=== PATIENT | female | born 1995 | race Caucasian/White ===

== ENCOUNTER 2017-09-23 21:40 | Observation (INO) ==
[2017-09-23 22:24] VITALS: BMI 38.0
--- NOTE | 2017-09-24 01:27 | OB/GYN History & Physical ---
- History of Present Illness Date of Admission: 09/23/17 21:40 : 3 PFSH Patient Stated Medical History Migraine Yes Asthma Yes Chlamydia Yes Human Papilloma Virus Yes Depression Yes Abnormal Pap Yes: ASCUS Now Yes - Social History Smoking status: Former smoker Medications Home Medications Medication Instructions Recorded Confirmed Type Acetaminophen 2 tab PO QID PRN #0 09/02/16 History Ibuprofen 2 tab PO Q4H PRN #0 09/02/16 History NO ROUTINE MEDS #0 09/02/16 History Allergies Allergy/AdvReac Type Severity Reaction Status Date / Time codeine Allergy Severe ANAPHYLACTIC Verified 09/02/16 12:15 SHOCK morphine Allergy Intermediate SWELLING Verified 09/02/16 12:15 nickel Allergy Intermediate hives Verified 09/02/16 12:15 Penicillins Allergy Intermediate HIVES Verified 09/02/16 12:15 aspirin Allergy Mild hives Verified 09/02/16 12:15 hydrocodone Allergy Mild HIVES Verified 09/02/16 12:15 fish oil Allergy Mild HIVES Uncoded 09/02/16 12:15 SURGICAL TAPE Allergy Mild HIVES Uncoded 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 Results - Labs CBC & Chem 7: 09/23/17 22:15 09/23/17 22:15 Labs: UA Ur Collection Type Urine, void-cc/notcc 09/23/17 22:21 Urine Color Yellow (YELLOW) 09/23/17 22:21 Urine pH 6.0 (5.0-8.0) 09/23/17 22:21 Ur Specific [place] 1.010 (1.015-1.025) L 09/23/17 22:21 Urine Protein Negative (NEGATIVE) 09/23/17 22:21 Urine Glucose (UA) Negative (NEGATIVE) 09/23/17 22:21 Urine Ketones Negative (NEGATIVE) 09/23/17 22:21 Urine Occult Blood Negative (NEGATIVE) 09/23/17 22:21 Urine Nitrate Negative (NEGATIVE) 09/23/17 22:21 Urine Bilirubin Negative (NEGATIVE) 09/23/17 22:21 Urine Urobilinogen 1.0 EU/DL (NORMAL) 09/23/17 22:21 Ur Leukocyte Esterase Trace (NEGATIVE) A 09/23/17 22:21
--- NOTE | 2017-09-24 01:34 | OB/GYN History & Physical ---
- History of Present Illness Date of Admission: 09/23/17 21:40 Reason for Admission: other History of Present Illness: patient presents to maternal with multiple complaints including redness and soreness at site of TDaP vaccination. She reports mild confusion and forgetfulness, lightheaded with one episode of fainting. She reports not remembering much of yesterday prior to her visit to [facility] L&D. She was dismissed in stable condition. She states she has a headache currently that she rates as severe and not like her normal headache. she states she had this headache yesterday and it resolved with rest but has since returned. She denies floaters in her vision but reports her eyeglasses she has at home no longer work to help her see. she reports decreased appetite with nausea when she eats and when she doesn't eat. Last menstrual period: 01/11/17 Expected Date of Delivery: 10/18/17 : 3 Para: 2 Review of Systems - Constitutional Constitutional: Present: anorexia, headache(s), weakness - EENT Eyes: Present: change in vision, requires corrective lenses - Cardiovascular Cardiovascular: Present: syncope - Respiratory Respiratory: Absent: cough, dyspnea, wheezing - Gastrointestinal Gastrointestinal: Present: nausea, vomiting - Genitourinary Genitourinary: Absent: abnormal vaginal bleeding, difficulty urinating, flank pain Menstruation: Present: amenorrhea - Integumentary/Breasts Integumentary: Absent: pruritus, rash - Neurological Neurological: Present: dizziness, focal weakness, headache(s), memory loss - Psychiatric Psychiatric: Present: abnormal sleep pattern, difficulty concentrating - Endocrine Endocrine: Absent: heat intolerance - Hematologic/Lymphatic Hematologic/Lymphatic: Absent: easy bleeding - Allergic/Immunologic Allergic/Immunologic: Present: as per HPI PFSH Patient Stated Medical History Migraine Yes Asthma Yes Chlamydia Yes Human Papilloma Virus Yes Depression Yes Abnormal Pap Yes: ASCUS Now Yes Surgical History: Myringotomy, Bunion RT 2011, Bunion Lt 2010 Family History: Breast Cancer Maternal grandmother Diabetes mellitus mother Stroke maternal grandmother Stroke paternal grandmother - Social History Smoking status: Former smoker second hand exposure: Yes Substance use type: does not use Alcohol intake frequency: does not drink Household members: spouse, children Medications Home Medications Medication Instructions Recorded Confirmed Type Acetaminophen 2 tab PO QID PRN #0 09/02/16 History Ibuprofen 2 tab PO Q4H PRN #0 09/02/16 History NO ROUTINE MEDS #0 09/02/16 History Allergies Allergy/AdvReac Type Severity Reaction Status Date / Time codeine Allergy Severe ANAPHYLACTIC Verified 09/02/16 12:15 SHOCK morphine Allergy Intermediate SWELLING Verified 09/02/16 12:15 nickel Allergy Intermediate hives Verified 09/02/16 12:15 Penicillins Allergy Intermediate HIVES Verified 09/02/16 12:15 aspirin Allergy Mild hives Verified 09/02/16 12:15 hydrocodone Allergy Mild HIVES Verified 09/02/16 12:15 fish oil Allergy Mild HIVES Uncoded 09/02/16 12:15 SURGICAL TAPE Allergy Mild HIVES Uncoded 10/06/15 16:10 Exam - Constitutional Present: no acute distress, morbidly obese - Neck Exam Present: supple, full ROM. Absent: JVD, lymphadenopathy, thyromegaly, tenderness - Respiratory Exam Present: CTA bilaterally - Cardiovascular Exam Present: RRR - Abdominal Exam Present: soft, non distended Comments: Gravid - Extremities Exam Extremities: Present: edema, non tender, full ROM - Neurological Exam Present: alert, oriented X3, CN II-XII intact, normal reflexes - Psychiatric Exam Present: normal affect, normal thought process, cooperative [employer]IC[employer] Results - Labs CBC & Chem 7: 09/23/17 22:15 09/23/17 22:15 Labs: UA Ur Collection Type Urine, void-cc/notcc 09/23/17 22:21 Urine Color Yellow (YELLOW) 09/23/17 22:21 Urine pH 6.0 (5.0-8.0) 09/23/17 22:21 Ur Specific [place] 1.010 (1.015-1.025) L 09/23/17 22:21 Urine Protein Negative (NEGATIVE) 09/23/17 22:21 Urine Glucose (UA) Negative (NEGATIVE) 09/23/17 22:21 Urine Ketones Negative (NEGATIVE) 09/23/17 22:21 Urine Occult Blood Negative (NEGATIVE) 09/23/17 22:21 Urine Nitrate Negative (NEGATIVE) 09/23/17 22:21 Urine Bilirubin Negative (NEGATIVE) 09/23/17 22:21 Urine Urobilinogen 1.0 EU/DL (NORMAL) 09/23/17 22:21 Ur Leukocyte Esterase Trace (NEGATIVE) A 09/23/17 22:21 Laboratory Results - last 24 hr 09/23/17 09/23/17 09/23/17 22:15 22:15 22:15 WBC 7.5 RBC 3.55 L Hgb 11.3 L Hct 33.4 L MCV 94.1 MCH 31.8 MCHC 33.8 RDW Std Deviation 39.8 Plt Count 255 MPV 10.2 Immature Gran % (Auto) 0.3 Neut % (Auto) 65.9 Lymph % (Auto) 23.3 [place] % (Auto) 8.5 Eos % (Auto) 1.3 Baso % (Auto) 0.7 Neut # (Auto) 5.0 Lymph # (Auto) 1.8 [place] # (Auto) 0.6 Eos # (Auto) 0.1 Baso # (Auto) 0.1 Abs Immat Gran (auto) 0.02 Turbidity < 20 Sodium 140 Potassium 3.7 Chloride 107 Carbon Dioxide 22 Anion Gap 11 BUN 7.0 Creatinine 0.5 L GFR Calculation 154 BUN/Creatinine Ratio 14 Glucose 88 Calculated Osmolality 266 Calcium 8.9 Total Bilirubin 0.40 Icterus Index < 2 AST 24 ALT 18 Alkaline Phosphatase 223 H Total Protein 6.8 Albumin 3.6 Globulin 3.2 Albumin/Globulin Ratio 1.1 Specimen Hemolysis < 15 Ur Collection Type Urine Color Urine Clarity Urine pH Ur Specific [place] Urine Protein Urine Glucose (UA) Urine Ketones Urine Occult Blood Urine Nitrate Urine Bilirubin Urine Urobilinogen Ur Leukocyte Esterase Urinalysis Comment Urine Opiates Screen Ur Oxycodone Screen Urine Methadone Screen Ur Propoxyphene Screen Ur Barbiturates Screen U Tricyclic Antidepress Ur Phencyclidine Scrn Ur Amphetamines Screen U Methamphetamines Scrn U Benzodiazepines Scrn Urine Cocaine Screen U Cannabinoids Screen Alcohol, Quantitative <10 09/23/17 09/23/17 22:21 22:21 WBC RBC Hgb Hct MCV MCH MCHC RDW Std Deviation Plt Count MPV Immature Gran % (Auto) Neut % (Auto) Lymph % (Auto) [place] % (Auto) Eos % (Auto) Baso % (Auto) Neut # (Auto) Lymph # (Auto) [place] # (Auto) Eos # (Auto) Baso # (Auto) Abs Immat Gran (auto) Turbidity Sodium Potassium Chloride Carbon Dioxide Anion Gap BUN Creatinine GFR Calculation BUN/Creatinine Ratio Glucose Calculated Osmolality Calcium Total Bilirubin Icterus Index AST ALT Alkaline Phosphatase Total Protein Albumin Globulin Albumin/Globulin Ratio Specimen Hemolysis Ur Collection Type Urine, void-cc/notcc Urine Color Yellow Urine Clarity Sl cloudy Urine pH 6.0 Ur Specific [place] 1.010 L Urine Protein Negative Urine Glucose (UA) Negative Urine Ketones Negative Urine Occult Blood Negative Urine Nitrate Negative Urine Bilirubin Negative Urine Urobilinogen 1.0 Ur Leukocyte Esterase Trace A Urinalysis Comment Microscopic not ind. Urine Opiates Screen Negative Ur Oxycodone Screen Negative Urine Methadone Screen Negative Ur Propoxyphene Screen Negative Ur Barbiturates Screen Negative U Tricyclic Antidepress Negative Ur Phencyclidine Scrn Negative Ur Amphetamines Screen Negative U Methamphetamines Scrn Negative U Benzodiazepines Scrn Negative Urine Cocaine Screen Negative U Cannabinoids Screen Negative Alcohol, Quantitative - Impressions EKG- NSR with first degree av block and occasional ectopic premature complexes - Imaging and Cardiology US - abdomen Additional comments: Growth scan AGA for 36w3d Cephalic, FHR 150, placenta anterior, YOBANI 10.9, BPP 8/ 8 Antepartum Assessment and Plan (1) 36 weeks gestation of Current visit: Yes Status: Acute Plan: Other (Observation, will start zantac, Doppler with VS q 4 hours while awake, NST daily during eval) (2) Headache Current visit: Yes Status: Acute Plan: Tylenol, Benadryl (CT scan with out contrast), Heating Pad (3) First degree AV block Current visit: Yes Status: Acute Plan: Other (Will get Hospitalist consult in am, VSS no telemetry for now. )
[2017-09-24 01:38] VITALS: RESP 18
[2017-09-24] MEDS ORDERED: ACETAMINOPHEN 500 MG TABLET PO PRN (01:57)
[2017-09-24] MEDS ORDERED: Oxycodone/Acetaminophen 5/325 1 TAB PO PRN (01:58)
[2017-09-24] MEDS ORDERED: DiphenhydrAMINE 25 MG CAPSULE PO PRN (01:58)
[2017-09-24] MEDS ORDERED: BUDESONIDE 90 MCG ORAL INH SCH (07:00)
--- NOTE | 2017-09-24 07:48 | Ultrasound Report ---
EXAM: US OB BPP w non-stress COMPARISON: No prior studies are available for comparison. INDICATION: with maternal headache TECHNIQUE: A routine biophysical profile was performed over a 30-minute scanning time protocol. FINDINGS: Single living intrauterine gestation. presentation: cephalic . FHR: 139 beats per minute. YOBANI: 10.9 cm. Normal. Placenta: Posterior without evidence for previa.. BIOPHYSICAL PROFILE FINDINGS: breathing motion score: 2 /2 movement score: 2 /2 tone score: 2 /2 Amniotic fluid index score: 2 /2 Total biophysical profile score: 8 /8 IMPRESSION: Normal biophysical profile score of 8/8 . .
--- NOTE | 2017-09-24 07:50 | CT Scan Report ---
EXAM: CT head/brain wo con HISTORY: headache and memory loss COMPARISON: No prior studies available for comparison. TECHNIQUE: Contiguous axial images of the brain without intravenous contrast were performed. The current CT scan was performed using radiation dose-reduction techniques. FINDINGS: The cortical sulci are well-maintained. The ventricles are midline and appear normal in size and configuration demonstrating no evidence of mass effect or midline shift. Normal francois-white matter differentiation is seen and there is no evidence of acute intracranial hemorrhage or acute transcortical infarct. No extra-axial masses or fluid collections are identified. The visualized bony calvarium appears intact and the paranasal sinuses are clear. IMPRESSION: Negative non-contrast CT scan of the head. .
--- NOTE | 2017-09-24 07:59 | Ultrasound Report ---
Indication: with maternal headache PROCEDURE: US OB age growth: Encounter: Initial Age by provided LMP is 36 weeks and 3 days correlating to an JUAN of October 18, 2017. Comparison: None PROCEDURE: US OB age growth: Technique: Grayscale and color Doppler transabdominal sonographic imaging was performed. Findings: There is a single living intrauterine gestation in cephalic lie. Placenta is posterior without previa. Quantity of amniotic fluid is normal. heart beats regularly at 150 beats per minute. biometry: Biparietal diameter: 9.22 cm 37 weeks and 4 days (85 percentile). Head circumference: 33.02 cm 37 weeks and 5 days (50 percentile). Abdominal circumference: 32.99 cm 37 weeks and 0 days (74 percentile). Femur Length: 6.9 cm 35 weeks and 3 days (22 percentile). biometrics are internally concordant and consistent with an estimated gestational age of 37 weeks and 0 days. Estimated weight is 3001 grams (60 percentile by LMP and 47 percentile by AUA method). Impression: 1. Single living intrauterine gestation with age by provided LMP of 36 weeks and 3 days. This correlates to an JUAN of October 18, 2017. 2. Best estimate of gestational age on today's exam is 37 weeks and 0 days, correlating to an JUAN of October 14, 2017. There is a preliminary report by [facility]. .
[2017-09-24] MEDS ORDERED: PRENATAL VITAMIN TABLET PO SCH (09:00)
[2017-09-24] MEDS ORDERED: ESCITALOPRAM 20 MG TABLET PO SCH (09:00)
[2017-09-24] MEDS ORDERED: RANITIDINE 150 MG TABLET PO SCH (09:00)
--- NOTE | 2017-09-24 09:24 | Consult Note ---
Consult Information - Data of Consult Consult date: 09/24/17 Requesting Physician: Rolly Cosme MD Primary Care Provider: Justus Jones MD Family Provider: Nesha Jones ([place]) - Consult Narrative Reason for consult: 1st degree AV block, syncope History of present illness: Patient is a 22 yo female who is 36 wks PG. She reports she developed a severe headache and nausea the day before yesterday and then she fainted last night. She reports that she was having headaches prior to her PG and that she has had headaches throughout this PG. She was Rx'd [place] by Dr. Cosme, but states she quit taking them b/c they didn't help. She has been taking Tylenol. She went to [place] ER the night before last d/t her headache and nausea and was given a liter of fluids and dismissed. She had talked about having memory loss over the past 2 days, but in specifically asking her if she could remember certain events, she was able to recall the events. She also c/o a pain in her chest which she states she had prior to her PG and has had off and on. The pain is reproducible with palpation. She rates her h/a 8/10 but hasn't used any of her PRN pain meds for headache. She is able to converse appropriately w/ o any sign of distress. Nurse reports that while taking vitals she auscultated pulse of 90, but when she put the O2 monitor on pt, the pulse read 140, but came down to <100 within seconds. She again rechecked pulse manually and it was 90. Pt saw the read out on the monitor and per nurse said "this keeps happening, my heart rate will shoot up really high and I feel hot, then it goes back down". Nurse notes that heart rate was not noted outside of normal range. Pt states that when she was at [facility] her pulse was 232 on admission. Past Medical History Medical History 36 wk PG h/o chlamydia h/o HPV depression Surgical History: Myringotomy, Bunion RT 2011, Bunion Lt 2010 Family History: F - . Unknown medical hx. M - low ejection fraction. Pacemaker. DM. 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 H/o GERD, but no sxs x 2 wks.) Medications Home Medications Medication Instructions Recorded Confirmed Type Acetaminophen 2 tab PO QID PRN #0 09/02/16 History Ibuprofen 2 tab PO Q4H PRN #0 09/02/16 History NO ROUTINE MEDS #0 09/02/16 History Allergies Allergy/AdvReac Type Severity Reaction Status Date / Time codeine Allergy Severe ANAPHYLACTIC Verified 09/02/16 12:15 SHOCK morphine Allergy Intermediate SWELLING Verified 09/02/16 12:15 nickel Allergy Intermediate hives Verified 09/02/16 12:15 Penicillins Allergy Intermediate HIVES Verified 09/02/16 12:15 aspirin Allergy Mild hives Verified 09/02/16 12:15 hydrocodone Allergy Mild HIVES Verified 09/02/16 12:15 fish oil Allergy Mild HIVES Uncoded 09/02/16 12:15 SURGICAL TAPE Allergy Mild HIVES Uncoded 10/06/15 16:10 Exam Vital Signs: Temperature 97.2 F 09/24/17 01:19 Pulse Rate 87 09/24/17 01:19 Respiratory Rate 18 09/24/17 01:19 Blood Pressure 119/59 09/24/17 01:19 Pulse Oximetry 98 09/23/17 22:03 Height/Weight/BMI: Height 1.68 m Weight 107.048 kg Body Mass Index 38.0 - Constitutional Present: no acute distress, well nourished, well developed - Routine HEENT Exam Head: Present: normocephalic, atraumatic Eye: Present: EOMI, PERRL ENT: Present: mucous membranes moist, oropharynx clear - Routine Neck Exam Present: supple. Absent: lymphadenopathy, thyromegaly - Routine Chest/Breast/Axilla Exam Chest wall: Present: tenderness (sternum) - Routine Respiratory Exam Present: CTA bilaterally. Absent: wheezes - Routine Cardiovascular Exam Present: RRR, no murmur - Routine Abdominal Exam Present: soft, normoactive bowel sounds. Absent: tenderness, distended - Routine Extremities Exam Present: no edema, normal capillary refill - Routine Skin Exam Present: dry, warm - Routine Neurological Exam Present: alert, oriented X3, CN II-XII intact - Routine Psychiatric Exam Present: normal affect, cooperative Results - Labs CBC & Chem 7: 09/23/17 22:15 09/23/17 22:15 - Imaging and Cardiology CT scan - head Additional comments: Date of Exam: 09/24/17 EXAM: CT head/brain wo con HISTORY: headache and memory loss FINDINGS: The cortical sulci are well-maintained. The ventricles are midline and appear normal in size and configuration demonstrating no evidence of mass effect or midline shift. Normal francois-white matter differentiation is seen and there is no evidence of acute intracranial hemorrhage or acute transcortical infarct. No extra-axial masses or fluid collections are identified. The visualized bony calvarium appears intact and the paranasal sinuses are clear. IMPRESSION: Negative non-contrast CT scan of the head. Assessment and Plan (1) 36 weeks gestation of Current visit: Yes Status: Acute (2) First degree AV block Current visit: Yes Status: Acute (3) Headache Current visit: Yes Status: Acute Assessment and Plan: Assessment 36 wk gestation PG Headache Syncopal episode 1st degree AV block on EKG Chest pain - musculoskeletal Plan CT head was neg. Blood pressures are normal. Labs nl. Will check Mg level on blood in lab. Telemetry to monitor rhythm/rate given her c/o subjective tachycardia. Tylenol for headaches and chest pain. No concern for cardiac etiology of CP at this time. 1st degree block on EKG is not concerning. Consider echo and/or EEG outpt to w-u syncopal episode, although, in a healthy 22 yo PG pt, could observe and w-u only if she has recurrence. Dr Rivas to make further recommendations. Resuscitation Status: Full Code - Physician Narrative Physician: Teressa Rivas MD Narrative: Date: 09/24/17 Time: 1800 I have independently evaluated and examined this patient. I reviewed the chart, the patient's history, and the SECURITY FLEX UTILITY OFFICER/PA's documented findings as above. We discussed and formulated the assessment and plan as above with additions as below: Chely was seen earlier today at which time she described bifrontal headache ( chronic but increased from baseline), syncope yesterday after poor oral intake throughout the day (a piece of cake about 4 PM, and a hamburger between 6 and 7 PM), nausea throughout the day, and feeling lightheaded when she gets up frequently for several weeks or months. She describes some nausea but no emesis or diarrhea. The patient appeared comfortable when seen, provided historical information without difficulty although was often vague-she reported having trouble remembering things at times but then went on to provide the information saying she had subsequently remembered it. Cranial nerves intact, sensation intact to light touch 4 extremities, MAEW Cardiac rhythm regular with occasional ectopic beats, S1-S2, soft flow murmur noted Gravid abdomen Laboratory data notable only for minor normocytic anemia Twelve-lead EKG reviewed by [id number] AV block with NC interval of 0.22; occasional APCs. Telemetry over the past 6 hours reviewed-sinus rhythm with rates in the 80s-90s , no tachycardia, occasional APCs but infrequent. CT head reviewed by myself-unremarkable. Patient encouraged to continue pushing oral intake of fluids, do not believe further evaluation needed for borderline first-degree AV block-benign variant and may be manifestation of increased vagal tone with headache/nausea. No arrhythmias of concern identified with telemetry. Can pursue further workup of syncope if recurs per Dr. Jones. Findings discussed with Dr. Pino. Hospital Course Summary Disclaimer: The visit summary below is not to be considered part of the above Progress Note.
[2017-09-24] MEDS ORDERED: ONDANSETRON ODT 4 MG TABLET PO PRN (11:45)
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
[2017-09-24 16:19] VITALS: BP 102/61; PULSE 91; TEMP 97.5; O2SAT 99
--- NOTE | 2017-09-24 18:22 | Discharge Summary ---
DC Information/Hospital Course Date of admission: 09/24/17 01:20 Anticipated date of discharge: 09/24/17 Attending Physician: Rolly Cosme MD Primary care physician: Maryann Myrick MD Consults: 09/24/17 02:12 Physician [Physician Consult] [CONS] Routine Consulting Provider: Luz Elena Garcia Reason For Exam: delerium Ordering Provider has Notified Sewing Machine Operator: No 09/24/17 07:02 Physician [Physician Consult] [CONS] Routine Consulting Provider: Teressa Rivas Reason For Exam: First degree AV block Ordering Provider has Notified Sewing Machine Operator: No 09/24/17 14:43 Case Management Consult [CONS] Routine Reason For Exam: (1) 36 weeks gestation of Status: Acute Problem details: Continue with Routine PNC (2) First degree AV block Status: Acute Problem details: Benign, Consult does not recommend further eval or monitoring. Contiue with adequate fluid hydration out patient. (3) Headache Qualifiers: Headache type: tension-type Headache chronicity pattern: acute headache Status: Acute - Hospital Course Hospital Course: 09/24/17 18:20 Admitted for observation, Reassuring testing , negative eval, 1 st degree av block benign, Neg Psych eval for in patient care. . Pt continued to have mild complaints but was satisfied with eval and was ok with plan for dismissal None Imaging Studies: BPP 8/8, Growth sono appropriate CT head without contrast WNL Laboratory: Labs from last 24 hours 09/23/17 09/23/17 09/23/17 22:21 22:21 22:15 WBC RBC Hgb Hct MCV MCH MCHC RDW Std Deviation Plt Count MPV Immature Gran % (Auto) Neut % (Auto) Lymph % (Auto) [place] % (Auto) Eos % (Auto) Baso % (Auto) Neut # (Auto) Lymph # (Auto) [place] # (Auto) Eos # (Auto) Baso # (Auto) Abs Immat Gran (auto) Turbidity Sodium Potassium Chloride Carbon Dioxide Anion Gap BUN Creatinine GFR Calculation BUN/Creatinine Ratio Glucose Calculated Osmolality Calcium Magnesium Total Bilirubin Icterus Index AST ALT Alkaline Phosphatase Total Protein Albumin Globulin Albumin/Globulin Ratio Specimen Hemolysis Ur Collection Type Urine, void-cc/notcc Urine Color Yellow Urine Clarity Sl cloudy Urine pH 6.0 Ur Specific [place] 1.010 L Urine Protein Negative Urine Glucose (UA) Negative Urine Ketones Negative Urine Occult Blood Negative Urine Nitrate Negative Urine Bilirubin Negative Urine Urobilinogen 1.0 Ur Leukocyte Esterase Trace A Urinalysis Comment Microscopic not ind. Urine Opiates Screen Negative Ur Oxycodone Screen Negative Urine Methadone Screen Negative Ur Propoxyphene Screen Negative Ur Barbiturates Screen Negative U Tricyclic Antidepress Negative Ur Phencyclidine Scrn Negative Ur Amphetamines Screen Negative U Methamphetamines Scrn Negative U Benzodiazepines Scrn Negative Urine Cocaine Screen Negative U Cannabinoids Screen Negative Alcohol, Quantitative <10 09/23/17 09/23/17 09/23/17 22:15 22:15 22:11 WBC 7.5 RBC 3.55 L Hgb 11.3 L Hct 33.4 L MCV 94.1 MCH 31.8 MCHC 33.8 RDW Std Deviation 39.8 Plt Count 255 MPV 10.2 Immature Gran % (Auto) 0.3 Neut % (Auto) 65.9 Lymph % (Auto) 23.3 [place] % (Auto) 8.5 Eos % (Auto) 1.3 Baso % (Auto) 0.7 Neut # (Auto) 5.0 Lymph # (Auto) 1.8 [place] # (Auto) 0.6 Eos # (Auto) 0.1 Baso # (Auto) 0.1 Abs Immat Gran (auto) 0.02 Turbidity < 20 Sodium 140 Potassium 3.7 Chloride 107 Carbon Dioxide 22 Anion Gap 11 BUN 7.0 Creatinine 0.5 L GFR Calculation 154 BUN/Creatinine Ratio 14 Glucose 88 Calculated Osmolality 266 Calcium 8.9 Magnesium 2.0 Total Bilirubin 0.40 Icterus Index < 2 AST 24 ALT 18 Alkaline Phosphatase 223 H Total Protein 6.8 Albumin 3.6 Globulin 3.2 Albumin/Globulin Ratio 1.1 Specimen Hemolysis < 15 Ur Collection Type Urine Color Urine Clarity Urine pH Ur Specific [place] Urine Protein Urine Glucose (UA) Urine Ketones Urine Occult Blood Urine Nitrate Urine Bilirubin Urine Urobilinogen Ur Leukocyte Esterase Urinalysis Comment Urine Opiates Screen Ur Oxycodone Screen Urine Methadone Screen Ur Propoxyphene Screen Ur Barbiturates Screen U Tricyclic Antidepress Ur Phencyclidine Scrn Ur Amphetamines Screen U Methamphetamines Scrn U Benzodiazepines Scrn Urine Cocaine Screen U Cannabinoids Screen Alcohol, Quantitative NETWORK RELAY TESTER Exam Vital signs: Temperature 97.5 F 09/24/17 16:00 Pulse Rate 91 09/24/17 16:00 Respiratory Rate 18 03/19/18 16:00 Blood Pressure 102/61 09/24/17 16:00 Pulse Oximetry 99 09/24/17 16:00 - Constitutional Present: no acute distress, well nourished, well developed - Routine HEENT Exam Eye: Present: EOMI, PERRL ENT: Present: mucous membranes moist, oropharynx clear - Routine Neck Exam Present: supple. Absent: lymphadenopathy, thyromegaly - Routine Chest/Breast/Axilla Exam Chest wall: Present: tenderness (sternum) - Routine Respiratory Exam Present: CTA bilaterally. Absent: wheezes - Routine Cardiovascular Exam Present: RRR, no murmur - Routine Abdominal Exam Present: soft, normoactive bowel sounds. Absent: tenderness, distended Comments: Gravid - Routine Extremities Exam Extremities: Present: no edema, normal capillary refill - Routine Neurological Exam Present: alert, oriented X3 Discharge Plan - Med Rec/Dispo Referrals/Follow Up: Maryann Myrick MD [Primary Care Provider] - Rolly Cosme MD [Physician] - Prescriptions: New Ranitidine [Zantac] 150 mg PO BID tab Vitamin Tab [Ryder ] 1 tab PO DAILY tab Budesonide Flexhaler [Pulmicort 90 Mcg Flexhaler] 1 puff ORAL INH RTBID inhaler Acetaminophen [Tylenol] 1,000 mg PO Q6H PRN tab PRN Reason: Discomfort Escitalopram [Lexapro] 20 mg PO DAILY tablet Continue Acetaminophen 2 tab PO QID PRN #0 PRN Reason: PAIN Discontinued Ibuprofen 2 tab PO Q4H PRN #0 PRN Reason: PAIN NO ROUTINE MEDS #0 - Disposition 01 Discharged Home, Self-Care - Dismissal Complete Discharge Instructions are:: Complete
== END 2017-09-24 19:33 | disposition home or self-care (01) ==
LOC: OBOBS 21:40 → MC 21:40
PROVIDERS: ADMIT Obstetrics & Gynecology; ATTEND Obstetrics & Gynecology

== ENCOUNTER 2017-10-11 04:19 | Inpatient (IN) ==
[2017-10-11] MEDS ORDERED: CARBOPROST 250 MCG/ML INJECTION IM PRN (06:13)
[2017-10-11] MEDS ORDERED: ACETAMINOPHEN 500 MG TABLET PO PRN ×2 (06:13→14:11)
[2017-10-11] MEDS ORDERED: LIDOCAINE 1% (10mg/ml) 2mL INJ PF SDV ID PRN (06:13)
[2017-10-11] MEDS ORDERED: CALCIUM CARBONATE Chewable 500mg TABLET PO PRN ×2 (06:13→14:11)
[2017-10-11] MEDS ORDERED: METHYLERGONOVINE 0.2 MG/ML INJECTION IM PRN (06:13)
[2017-10-11] MEDS ORDERED: MAG-AL + SIM ORAL LIQUID 30ml PO PRN ×2 (06:13→14:11)
[2017-10-11 06:25] VITALS: BMI 37.0
[2017-10-11] MEDS: LR 1,000 ML IV PRN ×3 (06:39→12:43)
[2017-10-11] MEDS ORDERED: D5LR 1,000 ML IV PRN (06:45)
[2017-10-11] MEDS ORDERED: OXYTOCIN DRIP 30 UNIT/500 ML ML IV PRN (06:45)
[2017-10-11] MEDS ORDERED: DiphenhydrAMINE 50 MG/ML INJECTION IVP PRN (10:05)
[2017-10-11] MEDS ORDERED: ROPIVACAINE 1% 10MG/ML INJ 200 MG, SUFentanil 50 MCG in NS 100 ML EPI PRN (10:05)
[2017-10-11] MEDS ORDERED: NALOXONE 0.4 MG/ML INJECTION IVP PRN (10:05)
[2017-10-11] MEDS ORDERED: ONDANSETRON 4 MG/2 ML INJECTION IVP PRN (10:05)
--- NOTE | 2017-10-11 10:05 | Anesthesia Preoperative Report ---
Anesthesia Epidural/Spinal Rec - Date and Time Date: 10/11/17 Preoperative Diagnosis: Term Induction Procedure: Labor Epidural Plan: Epidural - Vital Signs Vital Signs: Temperature 98.2 F 10/11/17 08:33 Pulse Rate 77 10/11/17 08:33 Respiratory Rate 18 10/11/17 08:33 Blood Pressure 117/71 10/11/17 08:33 Pulse Oximetry 100 10/11/17 08:33 /Para: P:2 - Medictaions & Allergies Inpatient Medications: Current Medications Acetaminophen (Tylenol) 500 - 1,000 mg PO Q4H PRN PRN Reason: Pain Al Hydroxide/Mg Hydroxide (Maalox Plus) 30 ml PO Q3H PRN PRN Reason: Indigestion Calcium Carbonate (Tums) 500 - 1,000 mg PO Q2H PRN PRN Reason: Indigestion Carboprost Tromethamine (Hemabate) 250 mcg IM O PRN PRN Reason: .Downtime Dextrose/Lactated Ringer's (Dextrose 5%-Lactated Ringers) 1,000 mls @ 125 mls/ hr IV .Q8H PRN PRN Reason: Labor Last Admin: 10/11/17 06:45 Dose: 125 mls/hr Oxytocin (Pitocin Drip) 30 unit in 500 mls @ 2 mls/hr IV .Q24H PRN; Protocol PRN Reason: Induction/Augmentation Last Admin: 10/11/17 06:43 Dose: 2 mls/hr Lactated Ringer's (Lactated Ringers) 1,000 mls @ 999 mls/hr IV .Q1H1M PRN Last Admin: 10/11/17 09:24 Dose: 999 mls/hr Lidocaine HCl (Xylocaine-Mpf 1% Vial) 0.2 mg ID O PRN PRN Reason: IV Start Methylergonovine Maleate (Methergine) 0.2 mg IM O PRN Misoprostol (Cytotec) 800 mcg NE ONCE PRN Allergies/Adverse Reactions: Allergies Allergy/AdvReac Type Severity Reaction Status Date / Time codeine Allergy Severe ANAPHYLACTIC Verified 10/06/17 19:11 SHOCK morphine Allergy Intermediate SWELLING Verified 10/06/17 19:11 nickel Allergy Intermediate hives Verified 10/06/17 19:11 Penicillins Allergy Intermediate HIVES Verified 10/06/17 19:11 aspirin Allergy Mild hives Verified 10/06/17 19:11 hydrocodone Allergy Mild HIVES Verified 10/06/17 19:11 fish oil Allergy Mild HIVES Uncoded 09/02/16 12:15 SURGICAL TAPE Allergy Mild HIVES Uncoded 10/06/15 16:10 - Home Medications Home Medications: Home Medications Medication Instructions Recorded Confirmed Type Albuterol Sulfate [Proair Hfa] 2 puff INH Q4H PRN 10/01/17 10/01/17 History Doxylamine/Pyridoxine HCl (B6) 1 tab PO PRN PRN 10/01/17 10/01/17 History [Diclegis Dr 10-10 mg Tablet] Hydrocodone/APAP 5/325 [[place] 1 tab PO Q4H PRN 10/01/17 10/01/17 History 5/325] - Medical History Respiratory: Reports: Asthma (uses inhaler as needed) DENIES: Bronchitis, Chronic Obstructive Pulmonary Disease (COPD), Dyspnea, Orthopnea, Pulmonary Embolism, Pneumonia, Upper Respiratory Infection, Pulmonary Edema, Sleep Apnea, Tuberculosis, Other Cardiovascular: DENIES: Abnormal EKG, Angina, Arrhythmia, Congestive Heart Failure, Coronary Artery Disease, Heart Murmur, Hypertension, Hypotension, High Cholesterol, Myocardial Infarction, Rheumatic Fever, Valvular Heart Disease, Other Gastrointestional: DENIES: Obstructive Bowel, Hepatitis, Cirrhosis, Nausea or Vomiting Present, Gastroesophageal Reflux Disease, Gastrointestinal Bleeding, Hiatal Hernia, Ulcer , Morbid Obesity, Other Neuro/Musculoskeletal: Reports: Back Problems (patient states sciatica), Depression (took meds for PP depression), Headaches (patient states migraines) Denies: HX.MS.OSAR, Cerebrovascular Accident, Loss of Consciousness, Muscle Weakness, Neuromuscular Disorder, Paralysis, Paresthesia, Syncope, Seizures, Other Renal/Endocrine: 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) DENIES: Diabetes Mellitus Type 1, Diabetes Mellitus Type 2, Renal Failure, Dialysis, Thyroid Disease, Weight Loss, Weight Gain Other History: Reports: Now (39 weeks) - Surgical History HEENT Surgeries: Reports: Ear Surgery (tubes as a child) Reproductive Surgery/Treatment: DENIES: Section Anesthesia Reactions: None Hx Family Anesthesia Reaction: No History of Motion Sickness: No - Social History Smoking Status: Former smoker Second Hand Exposure: Yes Substance Use Type: does not use Alcohol Intake Frequency: does not drink Hx Chewing Tobacco Use: No - Pertinent Findings Lab Data: CBC and BMP 10/11/17 06:37 - Physical Exam Respiratory Exam: lungs clear, bilateral breath sounds equal Cardiovascular Exam: regular rate and rhythm, no murmur - Airway Assessment Mallampati Score: I TMD: 3 Fingerbreadths Neck Extension: good Overall Assessment: may be difficult intubation - ASA ASA Score: 2 - Discussion Discussion: Discussed risks/options/alternatives of anesthesia and questions answered. Patient consents. Nursing pain assessment noted. Anesthesia Discussion: spouse Attestation Statement: Prior to the delivery of any anesthetic medication, I examined the patient, developed the plan, obtained the patient's consent and discussed the risk and benefits of the procedure with the patient/guardian.
[2017-10-11] MEDS ORDERED: LIDOCAINE 2%/EPI 1:200,000 20ml SDV PF ONE (11:04)
[2017-10-11] MEDS ORDERED: DiphenhydrAMINE 25 MG CAPSULE PO PRN (14:11)
[2017-10-11] MEDS ORDERED: HYDROCORTISONE 2.5% CREAM 30gm RECTALLY PRN (14:11)
[2017-10-11] MEDS: IBUPROFEN 800 MG TABLET PO PRN (15:04)
--- NOTE | 2017-10-11 16:15 | Labor and Delivery Note ---
DATE OF DELIVERY: 10/11/2017 DIAGNOSES 1. 22-year-old white female, G3, P2 at 39.0 weeks gestational age. 2. Pitocin induction of labor. 3. Artificial rupture of membranes. 4. Epidural anesthesia. 5. OP rotating to OA. 6. Spontaneous vaginal delivery. 7. Male infant, Apgars, 3241 g (FABY TAVERA). DESCRIPTION This is a multip with multiple triage visits over the last month who was brought in at term for induction for logistics. Pitocin reached a maximum of 20 milliunits a minute. Patient had artificial rupture of membranes and then epidural. She made it to complete dilation and began pushing. The infant spontaneously rotated from OP to OA and had a spontaneous vaginal delivery. Cord was allowed to drain for a couple of minutes and then we cut and the 's father cut the cord. Infant was placed on the mother's abdomen. Placenta delivered spontaneously. Perineum was intact. Maternal blood type is O+, rubella is immune. GBS is negative. At this point in time we are planning a tubal ligation for tomorrow morning. BRIAN
[2017-10-11] MEDS: OXYTOCIN DRIP 30 UNIT/500 ML ML IV SCH ×2 (16:58→19:31)
[2017-10-11] MEDS: Oxycodone/Acetaminophen 5/325 1 TAB PO PRN (19:30)
[2017-10-12] MEDS: Oxycodone/Acetaminophen 5/325 1 TAB PO PRN ×5 (00:07→23:17)
[2017-10-12] MEDS: IBUPROFEN 800 MG TABLET PO PRN ×3 (00:07→18:50)
[2017-10-12] MEDS: LR 1,000 ML IV SCH ×4 (00:11→09:39)
[2017-10-12] MEDS: OXYTOCIN DRIP 30 UNIT/500 ML ML IV SCH (02:29)
[2017-10-12] MEDS ORDERED: BUPIVACAINE 0.25% (2.5mg/ml) PF 30ml INJECTION ONE ×2 (06:55→07:28)
[2017-10-12] MEDS ORDERED: ACETAMINOPHEN IV 1,000 MG/100 ML VIAL IV ONE (07:05)
--- NOTE | 2017-10-12 07:10 | Anesthesia Preoperative Report ---
Anesthesia Preoperative Record - Date and Time Date: 10/12/17 Preoperative Diagnosis: induction Proposed Procedure: PPTL NPO Since Date: 10/11/17 NPO Since Time: 23:00 Allergies/Adverse Reactions: Allergies Allergy/AdvReac Type Severity Reaction Status Date / Time codeine Allergy Severe ANAPHYLACTIC Verified 10/06/17 19:11 SHOCK morphine Allergy Intermediate SWELLING Verified 10/06/17 19:11 nickel Allergy Intermediate hives Verified 10/06/17 19:11 Penicillins Allergy Intermediate HIVES Verified 10/06/17 19:11 aspirin Allergy Mild hives Verified 10/06/17 19:11 hydrocodone Allergy Mild HIVES Verified 10/06/17 19:11 fish oil Allergy Mild HIVES Uncoded 09/02/16 12:15 SURGICAL TAPE Allergy Mild HIVES Uncoded 10/06/15 16:10 - Vital Signs Vital Signs: Temperature 97.5 F 10/12/17 06:47 Pulse Rate 74 10/12/17 06:48 Respiratory Rate 24 10/12/17 06:47 Blood Pressure 123/60 10/12/17 06:47 Pulse Oximetry 96 10/12/17 06:47 Height and Weight: Height 5 ft 7 in Weight 107.5 kg Body Mass Index 37.0 - Medications Inpatient Medications: Current Medications Acetaminophen (Tylenol) 500 - 1,000 mg PO Q4H PRN PRN Reason: Discomfort Al Hydroxide/Mg Hydroxide (Maalox Plus) 30 ml PO Q4H PRN PRN Reason: Indigestion Calcium Carbonate (Tums) 500 - 1,000 mg PO Q2H PRN PRN Reason: Dyspepsia Carboprost Tromethamine (Hemabate) 250 mcg IM O PRN PRN Reason: .Downtime Diphenhydramine HCl (Benadryl) 25 - 50 mg PO Q6H PRN PRN Reason: Itching Docusate Calcium (Surfak) 240 mg PO DAILY [facility] Hydrocortisone (Anusol-Hc 2.5% Cream) 1 applic RECTALLY PRN PRN Oxytocin (Pitocin Drip) 30 unit in 500 mls @ 95 mls/hr IV .Q5H16M [facility] Last Admin: 10/12/17 02:29 Dose: Not Given Lactated Ringer's (Lactated Ringers) 1,000 mls @ 125 mls/hr IV .Q8H [facility] Last Admin: 10/12/17 06:10 Dose: 50 mls/hr Ibuprofen (Motrin) 800 mg PO Q8H PRN PRN Reason: Pain Last Admin: 10/12/17 00:07 Dose: 800 mg Magnesium Hydroxide (Mom) 30 ml PO DAILY PRN PRN Reason: Constipation Misoprostol (Cytotec) 800 mcg FL ONCE PRN Oxycodone/Acetaminophen (Percocet 5/325) 1 - 2 tab PO Q4H PRN PRN Reason: Pain Last Admin: 10/12/17 00:07 Dose: 2 tab Phenylephrine HCl (Anusol Supp) 1 supp FL PRN PRN PRN Reason: Hemorrhoids Home Medications: Home Medications Medication Instructions Recorded Confirmed Type Albuterol Sulfate [Proair Hfa] 2 puff INH Q4H PRN 10/01/17 10/12/17 History Doxylamine/Pyridoxine HCl (B6) 1 tab PO PRN PRN 10/01/17 10/12/17 History [Diclegis Dr 10-10 mg Tablet] Hydrocodone/APAP 5/325 [[place] 1 tab PO Q4H PRN 10/01/17 10/12/17 History 5/325] Is Patient on Beta Thomas?: No - Medical History Respiratory: Reports: Asthma (uses inhaler as needed) DENIES: Bronchitis, Chronic Obstructive Pulmonary Disease (COPD), Dyspnea, Orthopnea, Pulmonary Embolism, Pneumonia, Upper Respiratory Infection, Pulmonary Edema, Sleep Apnea, Tuberculosis, Other Cardiovascular: DENIES: Abnormal EKG, Angina, Arrhythmia, Congestive Heart Failure, Coronary Artery Disease, Heart Murmur, Hypertension, Hypotension, High Cholesterol, Myocardial Infarction, Rheumatic Fever, Valvular Heart Disease, Other Gastrointestional: DENIES: Obstructive Bowel, Hepatitis, Cirrhosis, Nausea or Vomiting Present, Gastroesophageal Reflux Disease, Gastrointestinal Bleeding, Hiatal Hernia, Ulcer , Morbid Obesity, Other Neuro/Musculoskeletal: Reports: Back Problems (patient states sciatica), Depression (took meds for PP depression), Headaches (patient states migraines) Denies: HX.MS.OSAR, Cerebrovascular Accident, Loss of Consciousness, Muscle Weakness, Neuromuscular Disorder, Paralysis, Paresthesia, Syncope, Seizures, Other Renal/Endocrine: 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) DENIES: Diabetes Mellitus Type 1, Diabetes Mellitus Type 2, Renal Failure, Dialysis, Thyroid Disease, Weight Loss, Weight Gain Other History: DENIES: Now (delivered yesterday) - Surgical History HEENT Surgeries: Reports: Ear Surgery (tubes as a child) Surgery/Treatment: DENIES: Dialysis Reproductive Surgery/Treatment: DENIES: Section Anesthesia Reactions: None Hx Family Anesthesia Reaction: No History of Motion Sickness: No - Social History Smoking Status: Former smoker Hx Chewing Tobacco Use: No Second Hand Exposure: Yes Substance Use Type: does not use Alcohol Intake Frequency: does not drink - Pertinent Findings Laboratory: CBC and BMP 10/12/17 06:23 EKG: Sinus Rhythm - Physical Exam Respiratory Exam: Present: lungs clear, bilateral breath sounds equal Cardiovascular Exam: Present: regular rate and rhythm, no murmur - Airway Assessment Mallampati Score: I TMD: 3 Fingerbreadths Neck Extension: good Overall Assessment: may be difficult intubation - ASA ASA Score: 2 - Plan Anesthesia: Neuroaxial - Discussion Discussion: Discussed risks/options/alternatives of anesthesia and questions answered. Patient consents. Nursing pain assessment noted. Present for Discussion: spouse Attestation Statement: Prior to the delivery of any anesthetic medication, I examined the patient, developed the plan, obtained the patient's consent and discussed the risk and benefits of the procedure with the patient/guardian. - Additional Information Seen by Anesthesia: Yes
--- NOTE | 2017-10-12 07:22 | Progress Note ---
OB PP Progress Note Free Text - Date Date: 10/12/17 - Progress Note Progress Note: vss af lab reviewed pt in preop area - still desires pptl - aware again that it is perm. q&a re surgery krb
[2017-10-12] MEDS ORDERED: MIDAZOLAM 2mg/2ml INJECTION ONE (07:28)
[2017-10-12] MEDS ORDERED: SALINE FLUSH 10ml SYRINGE ONE (07:30)
[2017-10-12] MEDS ORDERED: EPHEDRINE 50mg/ml INJECTION ONE (07:30)
[2017-10-12] MEDS ORDERED: LIDOCAINE 2% (100mg/5mL) 5ml PF SDV ONE (07:33)
[2017-10-12] MEDS ORDERED: BUPIVACAINE 0.25% (2.5mg/ml) PF 30ml INJECTION ID ONE (08:12)
[2017-10-12] MEDS ORDERED: FentaNYL 250 MCG/5 ML INJECTION ONE (08:14)
[2017-10-12] MEDS ORDERED: KETAMINE 500 MG/10 ML INJECTION ONE (08:23)
[2017-10-12] MEDS ORDERED: NEOMYCIN/POLYMYXIN/BACITRACIN OINT PACKET TP PRN ×3 (08:35→08:55)
--- NOTE | 2017-10-12 08:44 | OB/GYN Procedure Note ---
Operative Note Date of Surgery: 10/12/17 Preoperative Diagnosis: desires perm sterilization Postoperative Diagnosis:same Procedure:Modified Chai PPTL Surgeon:Rolly Cosme MD EBL: <20cc Anesthesia: Spinal & IV and Nitrous Complications:none
[2017-10-12] MEDS: FentaNYL 100 MCG/2 ML INJECTION IVP PRN ×4 (08:54→09:31)
[2017-10-12] MEDS ORDERED: ONDANSETRON 4 MG/2 ML INJECTION IVP PRN (08:58)
[2017-10-12] MEDS: DOCUSATE CALCIUM 240 MG CAPSULE PO SCH (12:21)
--- NOTE | 2017-10-12 14:21 | Operative Note ---
DATE OF SURGERY: 10/12/2017 PREOPERATIVE DIAGNOSIS: 22-year-old white female, , desiring permanent sterilization. POSTOPERATIVE DIAGNOSIS: Same. PROCEDURE: Modified Chai tubal ligation. EBL: Less than 20 ml SURGEON: Rolly Cosme MD ANESTHESIA: Spinal and IV and nitrous gas by Nithin Garcia CRNA. COMPLICATIONS: None. DESCRIPTION OF OPERATION Prior to starting the procedure the patient again vocalized her desire for permanent sterilization. The risks, complications and alternatives to this procedure were again reviewed and questions were answered to the Patient's satisfaction. A chance of failure is present (estimated at 1%) coupled with an increased risk of ectopics if failure occurs. The patient is aware of this and still desires to proceed. After the above anesthesia, the patient was prepped and draped in the supine position. The bladder was emptied prior to beginning the procedure. Then 0.25 % Marcaine was injected in the inferior aspect of the umbilical region for additional anesthesia. Then a semilunar subumbilical incision was made with a scalpel. This was carried down to the fascia. The fascia was identified and incised transversely with the Mcnulty scissors. Peritoneum was then identified and grasped with a Bernarda clamp and entered with a Metzenbaum scissors. [employer]- [place] retractors were used. The patient was then placed in slight Trendelenburg position and rolled to the left side. The right fallopian tube was then identified and grasped with a [place] clamp and followed in a serial fashion to its fimbriated end to confirm tube identification. Then in a stairstep fashion it was followed back to the mid isthmic portion of the tube. The mid isthmic portion of the tube was elevated through the incision forming a knuckle of the tube and this knuckle was initially ligated using 2-0 chromic. Then a Bernarda clamp was passed through the meso of the tube and the proximal and distal aspects of the knuckle of the tube were ligated using 2-0 silk sutures. The knuckle of the tube was then transected and removed and sent to surgical pathology for lumen confirmation. Hemostasis was confirmed. Then 0.25% Marcaine was injected in the ligated end of the knuckle of the tube for additional anesthesia. The tube was then allowed to return to the abdominal wall after the fimbriated end was again visualized to confirm identification. Once the tube was replaced into the abdominal cavity the patient was rolled to the other side and the procedure was repeated in an identical fashion on the left side. Care was taken to identify the fallopian tube prior to and after performing the procedure by visualization of the fimbriated end. Once this was completed on both sides and hemostasis was confirmed on both sides, the abdomen was then closed in layers. This was done first by closing the peritoneum in a pursestring fashion using 2-0 Vicryl. Then using 2-0 Vicryl in a running nonlocking fashion, fascia was closed. The skin was closed in a subcuticular fashion using 4-0 undyed Vicryl. Additional Marcaine was injected around the incision site. The patient tolerated the procedure well and went to the recovery room in stable condition. Pad, sponge and needle counts were correct. MANDEEPD
--- NOTE | 2017-10-12 14:50 | Anesthesia Postoperative Note ---
- Date and Time Date: 10/12/17 Time: 14:49 - Status Patient Participated in Evaluation: Patient Participated in Person Vital Signs: Temperature 97.6 F 10/12/17 11:15 Pulse Rate 70 10/12/17 11:21 Respiratory Rate 16 10/12/17 11:21 Blood Pressure 116/69 10/12/17 11:21 Pulse Oximetry 100 10/12/17 11:21 Respiratory Function: Airway Patent Cardiovascular Function: Regular Pulse EKG: Sinus Rhythm Mental Status: Alert and Oriented Pain Intensity: 0 Hydration: Taking PO Fluids Complications During Recover: None Apparent - Follow-Up Instructions Instructions: Per Surgeon
--- NOTE | 2017-10-12 17:27 | Progress Note ---
OB PP Progress Note Free Text - Date Date: 10/12/17 - Progress Note Progress Note: vss af q&a w/ pt and FOB. disc surgery and recovery and 6 wk pp bleeding and edema after delivery. q&a to their satisfaction.-zariab
[2017-10-13 00:22] VITALS: RESP 16
[2017-10-13] MEDS: Oxycodone/Acetaminophen 5/325 1 TAB PO PRN ×2 (04:16→08:54)
[2017-10-13 06:50] VITALS: BP 133/80; PULSE 78; TEMP 97.5; O2SAT 100
[2017-10-13] MEDS: IBUPROFEN 800 MG TABLET PO PRN (08:54)
[2017-10-13] MEDS: DOCUSATE CALCIUM 240 MG CAPSULE PO SCH (08:55)
--- NOTE | 2017-10-13 10:55 | OB/GYN Progress Note ---
OB-PP Progress Note - General PPD2 - Subjective Date: 10/13/17 Lochia: Minimal Pain: controlled Voiding: voiding - Objective Vital Signs: Last Vital Signs Temp 97.5 F 10/13/17 04:20 Pulse 78 10/13/17 04:20 Resp 16 10/13/17 04:20 BP 133/80 10/13/17 04:20 Pulse Ox 100 10/13/17 04:20 General: alert and oriented Abdomen: fundus firm, non-tender Incision: normal, dry, intact Extremities: non-tender - Assessment Assessment: , Tubal Ligation - Plan Plan: routine care, discharge home, continue PNV
== END 2017-10-13 13:25 | disposition home or self-care (01) | DRG 767 ==
LOC: MC 06:06
PROVIDERS: ADMIT Obstetrics & Gynecology; ATTEND Obstetrics & Gynecology